=== PATIENT | female | born 1960 | race Caucasian/White ===

== ENCOUNTER 2019-11-21 07:33 | Emergency (ER) | payer MEDICAID, OTHER ==
[2019-11-21 10:00] LABS: Clarity Clear (Clear)
[2019-11-21 10:01] LABS: Glucose, Urine (Dipstick) Unable to Interpret mg/dL (Negative); Leukocyte Small (Negative); Nitrite Unable to Interpret (Negative); Protein, Urine (Dipstick) Unable to Interpret mg/dL (Neg-Trace)
[2019-11-21 10:02] LABS: Bilirubin Unable to Interpret (Negative); Blood, Urine Trace (Negative); Urobilinogen UNABLE TO INTERPRET mg/dL (Less than 2)
[2019-11-21 10:03] LABS: Bacteria/HPF 1+ HPF (None Seen); Trichomonas/HPF Rare HPF (None Seen)
[2019-11-21] MEDS ORDERED: Azithromycin 250 MG TAB ONE (10:24)
[2019-11-21] MEDS ORDERED: cefTRIAXone\\ROCEPHIN 250 MG VIAL ONE (10:24)
[2019-11-21] MEDS ORDERED: Lidocaine 1% PF 5 ML VIAL ONE (10:25)
[2019-11-21] MEDS ORDERED: Lidocaine 1% (PF) 30 ML VIAL ONE (10:26)
== END 2019-11-21 10:58 | disposition home or self-care (01) ==
LOC: ERS 07:33
DX: N39.0 Urinary tract infection, site not specified (principal); A64 Unspecified sexually transmitted disease; F41.9 Anxiety disorder, unspecified; F32.9 Major depressive disorder, single episode, unspecified; K21.9 Gastro-esophageal reflux disease without esophagitis; I10 Essential (primary) hypertension; M19.90 Unspecified osteoarthritis, unspecified site; J45.909 Unspecified asthma, uncomplicated
CPT/HCPCS: 81003; 81015; 96372; 99283; J0696; J2001

== ENCOUNTER 2022-11-23 10:37 | Emergency (ER) | payer OTHER ==
[2022-11-23] MEDS ORDERED: Acetaminophen 500 MG TAB ONE (14:37)
[2022-11-23] MEDS ORDERED: Ketorolac Tromethamine 30 MG/ML VIAL ONE (14:53)
[2022-11-23 15:21] LABS: #Eosinphils 0.1 thou/uL (0.0-0.7); #Lymphocytes 1.2 thou/uL (1.20-3.40); #Monocytes 0.8 thou/uL (0.11-0.59); #Neutrophils 6.8 thou/uL (1.40-6.50); %Basophils 0.1 % (0.0-1.0); %Eosinophils 1.6 % (0.0-10.0); %Lymphocytes 13.2 % (21.0-51.0); %Monocytes 8.9 % (0.0-10.0); %Neutrophils 76.2 % (42.0-75.0); Mean Corpuscular HGB CONC 32.9 g/dL (32.0-36.0); Mean Corpuscular Hemoglobin 31.9 pg (27.0-31.0); Mean Corpuscular Volume 97.1 fl (78.0-98.0); Mean Platelet Volume 9.6 fL (7.4-10.4); Platelet Count 132 10x3/uL (130-400); RBC Distribution Width 13.4 % (11.5-14.5); Red Blood Cell (RBC) Count 4.69 mill/uL (4.20-5.40); White Blood Cell (WBC) Count 8.9 10x3/uL (4.8-10.8)
[2022-11-23 15:44] LABS: ALT (SGPT) 10 U/L (8-55); AST (SGOT) 20 U/L (5-34); Acetaminophen Less than 10.0 mcg/mL (10.0-30.0); Albumin 3.9 g/dL (3.4-4.8); Alcohol Less than 10 mg/dL (Less than 10); Alkaline Phosphatase 68 U/L (40-110); Anion Gap 18 mmol/L (10-20); BUN (Urea Nitrogen) 12 mg/dL (9.8-20.1); Bilirubin, Total 0.3 mg/dL (0.2-1.2); Calc. Creatinine Clearance 0 mL/min (70-130); Calcium 9.2 mg/dL (7.8-10.44); Carbon Dioxide 20 mmol/L (23-31); Chloride 105 mmol/L (98-107); Estimated GFR 87; Globulin 3.9 g/dL (2.4-3.5); Glucose 99 mg/dL (80-115); Protein, Total 7.8 g/dL (5.8-8.1); Salicylate Less than 8.0 mg/dL (15.0-30.0); Sodium 138 mmol/L (136-145)
[2022-11-23] MEDS ORDERED: Prochlorperazine 10 MG/2 ML VIAL ONE (19:08)
[2022-11-23] MEDS ORDERED: diphenhydrAMINE 50 MG/ML VIAL ONE (19:08)
== END 2022-11-23 21:12 | disposition home or self-care (01) ==
LOC: ERS 10:37
DX: F43.20 Adjustment disorder, unspecified (principal); K21.9 Gastro-esophageal reflux disease without esophagitis; I10 Essential (primary) hypertension; J45.909 Unspecified asthma, uncomplicated; Z79.899 Other long term (current) drug therapy
CPT/HCPCS: 70450; 80053; 80307; 84439; 84443; 85025; 96374; 96375; J0780; J1200; J1885